=== PATIENT | male | born 1945 | race Caucasian/White ===

== ENCOUNTER 2019-04-23 06:11 | Inpatient (IN) ==
--- NOTE | 2019-04-22 13:12 | Anesthesiology Consultation ---
Date of Service April 22, 2019 Assessment & Plan (1) Encounter for pre-operative examination: Chart Review Chart Review: Acceptable Risk for Surgery and Patient NOT seen in Pre Admission Testing Consults Requested none History Surgery Operation Date: 04/23/19 08:00 Proposed Procedures p Pacemaker Insert HIS Bundle w/Graciela uGzman DO Height/Weight Height: 5 ft 9 in Weight: 108.862 kg Allergies Allergy/AdvReac Type Severity Reaction Status Date / Time meloxicam Allergy Intermediate FEVER, Verified 04/22/19 08:11 SWELLING IN HANDS Medications Home Medications Medication Instructions Recorded Confirmed Last Taken allopurinol 100 mg PO BID 04/22/19 04/22/19 Unknown amlodipine 5 mg PO QAM 04/22/19 04/22/19 Unknown aspirin 325 mg PO DAILY 04/22/19 04/22/19 Unknown cyanocobalamin (vitamin B-12) 1,000 mcg PO DAILY 04/22/19 04/22/19 Unknown insulin NPH isoph U-100 human 27 unit SUBCUT BID 04/22/19 04/22/19 Unknown [Novolin N NPH U-100 Insulin] insulin regular human [Novolin R 1 sliding scale dose SUBCUT 04/22/19 04/22/19 Unknown Regular U-100 Insuln] USEASDIRECTD losartan 50 mg PO QAM 04/22/19 04/22/19 Unknown magnesium oxide 400 mg PO BID 04/22/19 04/22/19 Unknown omega 6-hae-hiq-fish oil [Fish Oil] 1 cap PO DAILY 04/22/19 04/22/19 Unknown pravastatin 20 mg PO QPM 04/22/19 04/22/19 Unknown Past Medical History Medical History Bradycardia CAD (coronary artery disease) s/p CABG (20+ years ago) Chronic kidney disease Diabetes mellitus, type 2 GERD (gastroesophageal reflux disease) Gout Hyperlipidemia Hypertension Kidney cysts Peripheral neuropathy Temporomandibular joint disorder hx (no current issues) Past Family History Family History Father Family history of diabetes mellitus Aunt Family history of diabetes mellitus Family hx of colon cancer Past Surgical History Surgical History History of anesthesia reaction "Slow to wake" History of cardiac cath 20+ years ago History of cataract surgery RT/LEFT History of coronary artery bypass graft CABG x 3 (20+ years ago) History of foot surgery RT/LEFT TOE TENDON SURGERY History of tonsillectomy and adenoidectomy History of tooth extraction Social History Smoking Status: Never smoker Do You Dip or Chew Tobacco: No Hx Alcohol Use: Yes Alcohol type: wine Alcohol Intake Frequency Comment: [facility] Hx Substance Use: No Testing Laboratory Results 04/14/10 WBC 6.9 Hgb 15.8 Plt 234 BUN 13 Cr 1.3 NA 135 K 5 Cl 97 CO2 29 AG 9 Gluc 201 Ca 9.5 Electrocardiogram Date: 12/09/18 Findings: + SB @ (56) 1st degree AV block Stress Test Date: 09/12/17 Type: exercise Findings: + WNL, + did not achieved max HR (87%) and + pertinent finding (occasional PVC during stress, RBBB noted at rest) Other Testing 12/09/18 Carotid ultrasound less than 50% stenosis of R and L internal carotid arteries
[~2019-04-23 06:11] MED LIST: CEFAZOLIN 2000MG 2,000 MG/15 ML SYR IV SCH; LR 15ML/HR IV SCH; SODIUM CHLORIDE 0.9% 1000ML IV SCH
[2019-04-23] MEDS ORDERED: LIDOCAINE HCL 1% 20 ML VIAL ONE (07:20)
[2019-04-23] MEDS ORDERED: BUPIVACAINE 0.25% 30 ML VIAL ONE (07:20)
[2019-04-23] MEDS ORDERED: BACITRACIN INJ 50,000 UNIT VIAL ONE (07:20)
[2019-04-23] MEDS ORDERED: CEFAZOLIN 250 MG/ML 1 GM VIAL ONE (07:39)
[2019-04-23] MEDS ORDERED: KETAMINE HCL INJ 50 MG/ML 10 ML VIAL ONE (07:56)
[2019-04-23] MEDS ORDERED: fentaNYL citrate 100 MCG/2 ML VIAL ONE (07:56)
[2019-04-23] MEDS ORDERED: GLYCOPYRROLATE 0.2 MG/ML VIAL ONE (07:56)
[2019-04-23] MEDS ORDERED: LIDOCAINE HCL 2% 2 ML VIAL/AMP(20MG/ML) INFIL ONE (07:56)
[2019-04-23] MEDS ORDERED: PROPOFOL IV EMULSION 10 MG/ML 100 ML VIAL IV ONE (07:56)
--- NOTE | 2019-04-23 08:01 | History & Physical Bridge Note ---
Date of Service April 23, 2019 History & Physical Bridge Note I have examined the patient, reviewed the History & Physical and in the interval since the performance of the History & Physical I have noted the following changes of clinical significance: no changes noted
[2019-04-23] MEDS ORDERED: SODIUM CHLORIDE 0.9% INJ 10 ML VIAL ONE (08:23)
[2019-04-23] MEDS ORDERED: ONDANSETRON INJ 2 MG/ML 2 ML VIAL ONE (10:25)
[2019-04-23] MEDS ORDERED: ACETAMINOPHEN 325 MG TAB PO PRN (10:52)
[2019-04-23] MEDS ORDERED: OXYCODONE/ACETAMINOPHEN 5mg/325mg TAB PO PRN (10:52)
--- NOTE | 2019-04-23 10:52 | Operative Report ---
Post Operative Report Pre & Post Diagnosis Intermittent 2:1 AV block Operation Date: 04/23/19 08:00 <No data on this case meets the specified criteria> I identified the patient and participated in the time-out.: Yes Procedure Operation Date: 04/23/19 08:00 Actual Procedures p Pacer with A/V Leads (Dual) - Kacie Guzman DO s Venogram, Unilateral - Kacie Guzman DO Surgeon Kacie Guzman, Shop Girl none Estimated Blood Loss 25 Findings Consistent with Post-Op Diagnosis Specimens none Description of Procedure see official report I attest to the content of the Intraoperative Record and any orders documented therein. Any exceptions are noted below.
[2019-04-23] MEDS ORDERED: NovoLIN-R INSULIN PER UNIT CHARGE SQ SCH (11:00)
--- NOTE | 2019-04-23 11:18 | Anesthesiology Progress Note ---
Date of Service April 23, 2019 Anesthesia Post Procedure Vital Signs Vital Signs: Temp Pulse Resp BP Pulse Ox 04/23/19 11:12 62 20 133/82 99 04/23/19 11:00 67 20 133/72 100 04/23/19 07:12 36.8 C 71 20 150/102 H 98 Transfer of Care Handoff Completed per policy Notes Mental Status: alert / awake / arousable Patient Amnestic to Procedure: Yes Nausea / Vomiting: adequately controlled Pain: adequately controlled Airway Patency, RR, SpO2: stable & adequate BP & HR: stable & adequate Hydration State: stable & adequate Anesthetic Complications: no major complications apparent and Pt Satisfied with anesthetic care
[2019-04-23] MEDS ORDERED: PHARMACY GLYCEMIC MGMT CONSULT PRN (11:35)
[2019-04-23] MEDS: INSULIN ASPART 100 UNITS/ML 3 ML PEN SC SCH ×4 (12:37→20:38)
--- NOTE | 2019-04-23 13:28 | Pharmacy Report ---
Pharmacy Glycemic Short Note 2 - Date of Service April 23, 2019 - Glycemic Short BSG Results (Last 24 hours): 04/23/19 04/23/19 04/23/19 07:43 09:21 10:17 POC Glucose 184 H 200 H 181 H 04/23/19 11:34 POC Glucose 198 H OUTPATIENT ANTIDIABETIC REGIMEN (PER PATIENT REPORT 04/23): * NPH 26 units BID (upon awakening and at bedtime) * Regular BID with meals (lunch and dinner) per carb ratio 1 unit per 8 gm CHOs eaten, correction factor 30mg/dL/unit * A1c = ? (patient reports his last A1c = 7.1) ASSESSMENT: * Type 2 diabetic admitted for bradycardia, pacemaker insertion * Patient reports giving himself 13 units NPH this AM per pre-op instructions * BSGs in the 180's and 190's range since admission. * Patient refusing correctional and prandial insulin administration for BSG 200 * Will provide orders for NPH + Novolog for this admission based upon his reported out-pt doses, however pt appears to be resistant to allowing insulin administration because it will "bottom him out" PLAN FOR INPATIENT GLYCEMIC CONTROL: * Check A1c with tomorrow's labs * Basal insulin * NPH 20 units SQ BIDM (~80% of home dosage due to hospital dietary restrictions), will give next dose w/ evening meal due to current hyperglycemia and basal deficiency * Bolus insulin * NovoLog per scale ACHS or Q6hrs while NPO * Goal Range: Low 120 mg/dL - High 150 mg/dL * Correction Factor: 25 mg/dL/unit * Nutritional / Prandial insulin per carb ratio of 1 unit per 8 grams CHO consumed PLAN FOR DISCHARGE: * to be determined
[2019-04-23] MEDS: AMLODIPINE BESYLATE 5 MG TAB PO SCH (15:07)
[2019-04-23] MEDS: LOSARTAN POTASSIUM 50 MG TAB PO SCH (15:07)
[2019-04-23] MEDS ORDERED: COUGH DROP (SUGAR FREE) LOZ 24 LOZ/1 BOX BUCCAL PRN (16:55)
[2019-04-23] MEDS: INSULIN HUMAN NPH SC SCH (17:59)
[2019-04-23] MEDS: MAGNESIUM OXIDE 400 MG TAB PO SCH (20:37)
[2019-04-23] MEDS: allopurinoL 100 MG TAB PO SCH (20:38)
[2019-04-23] MEDS ORDERED: [UNRECOGNIZED DRUG - OTHER] SQ SCH (21:00)
[2019-04-23] MEDS ORDERED: PRAVASTATIN SOD 20 MG TAB PO SCH (21:00)
[2019-04-23] MEDS ORDERED: INSULIN ISOPHANE SQ SCH (21:00)
[2019-04-24 06:31] LABS: Estimated Average Glucose 194 mg/dl; Hemoglobin A1C 8.4 % (4.5-5.6)
--- NOTE | 2019-04-24 08:04 | Discharge Summary ---
Date of Service April 24, 2019 Admission HPI Per Admitting Provider Pt admitted for elective ppm due to symptomatic intermittent 2:1 AV block Admission Exam Per Admitting Provider aaox3, NAD NC/AT, EOMI Supple No JVD Nrl S1/S2, No murmur CTA b/l no w/r/r soft nt/nd no LE edema b/l skin intact no focal deficits Principal Diagnosis Intermittent 2:1 AV block s/p dual chamber ppm Discharge Exam aaox3, NAD NC/AT, EOMI Supple No JVD Nrl S1/S2, No murmur CTA b/l no w/r/r soft nt/nd no LE edema b/l skin intact no focal deficits left pectoral incision intact, no hematoma mild ecchymosis Discharge Data Allergies Allergy/AdvReac Type Severity Reaction Status Date / Time meloxicam Allergy Intermediate FEVER, Verified 04/22/19 08:11 SWELLING IN HANDS Procedures Performed Operation Date: 04/23/19 08:00 Actual Procedures p Pacer with A/V Leads (Dual) - Kacie Guzman DO s Venogram, Unilateral - Kacie Guzman DO Ordered Studies ECG: SR CXR: No PTX leads in position 04/23/19 07:30 EP Lab Images for PACS ONCE Total Time Total Time Spent Total Time Spent (In Minutes): 30 Total Time Includes: Examination of the Patient, Discharge Planning, Medication Reconciliation and Other Discharge Plan Discharge Items Patient Disposition: Home - Self-Care Reason For Visit: Bradycardia,DUAL PACER INSERTION Discharge Diagnosis: av block s/p ppm Condition on Discharge: Good Activity: As commented below Activity Comment: do not lift the left elbow over the left shoulder for 1 month Lifting: No more than 10 pounds Lifting Comment: do not lift more than 10 pounds with the left arm for 2 weeks Bathing: Keep incision dry Bathing Comment: can shower wednesday 04/25 let water run over the dressing do not scrub it Sexual Activity: After two weeks Driving/Machine Use: Resume 1 day after discharge Non-emergency contact: Food And Beverage Intern Call non-emergency contact if: you have any medication questions Follow-up/Referrals: Sylvain Kearns MD [Primary Care Provider] - Diet: Heart Healthy Add Attending Provider Instructions: device and wound check next week in [place] as scheduled if you notice any concerns at the incision area call my office immediately try to keep the white dressing on until your wound check Pending Studies at Discharge: No Stand-Alone Forms: My [facility], Smoking Cessation Medications and DC Order Prescriptions: Continued losartan 50 mg Tablet 50 mg PO QAM RF: 0 aspirin 325 mg Tablet 325 mg PO DAILY RF: 0 cyanocobalamin (vitamin B-12) 1,000 mcg Tablet 1,000 mcg PO DAILY RF: 0 amlodipine 5 mg Tablet 5 mg PO QAM RF: 0 allopurinol 100 mg Tablet 100 mg PO BID RF: 0 Novolin R Regular U-100 Insuln 100 unit/mL Solution 1 sliding scale dose SUBCUT USEASDIRECTD RF: 0 Novolin N NPH U-100 Insulin 100 unit/mL Suspension 27 unit SUBCUT BID RF: 0 pravastatin 20 mg Tablet 20 mg PO QPM RF: 0 omega 1-scr-jfj-fish oil [Fish Oil] 1,000 mg (120 mg-180 mg) Capsule 1 cap PO DAILY RF: 0 magnesium oxide 400 mg magnesium Capsule 400 mg PO BID RF: 0 Discharge Orders: Discharge Order (Routine); Ordered 04/24/19 Ordered By: Kacie Guzman Admission Data Admit Date/Time: 04/23/19 10:58 Attending Provider: Kacie Guzman Admit Provider: Kacie Guzman Primary Care Provider: Sylvain Kearns
[2019-04-24] MEDS: INSULIN HUMAN NPH SC SCH (08:13)
[2019-04-24] MEDS: MAGNESIUM OXIDE 400 MG TAB PO SCH (08:13)
[2019-04-24] MEDS: allopurinoL 100 MG TAB PO SCH (08:13)
[2019-04-24] MEDS: INSULIN ASPART 100 UNITS/ML 3 ML PEN SC SCH (08:14)
[2019-04-24] MEDS: AMLODIPINE BESYLATE 5 MG TAB PO SCH (08:49)
[2019-04-24] MEDS: LOSARTAN POTASSIUM 50 MG TAB PO SCH (08:49)
[2019-04-24] MEDS ORDERED: OMEGA-3 (PURIFIED FISH OIL) 1 GM CAP PO SCH (09:00)
[2019-04-24] MEDS ORDERED: CYANOCOBALAMIN 500 MCG TABLET (VITAMIN B-12) PO SCH (09:00)
[2019-04-24] MEDS ORDERED: ASPIRIN 325 MG ECTAB PO SCH (09:00)
--- NOTE | 2019-04-24 09:31 | XRay Report ---
XR chest 2V PA/lateral HISTORY: Status post pacemaker placement. COMPARISON: None. FINDINGS: The lungs are clear. The heart is normal in size. There are poststernotomy changes with mul tiple fractures sternal wires. Left-sided dual-chamber pacemaker. Leads appear intact. The left ventr icular lead is more superior than expected. No pneumothorax. No pleural effusions. IMPRESSION: 1. No pneumothorax. 2. The left ventricular lead is more superior than expected. Clinical correlation recommended. Electronically signed by: Jim Fountain M.D. 04/24/2019 9:29 AM
--- NOTE | 2019-04-24 10:48 | Anesthesiology Progress Note ---
Date of Service April 24, 2019 Anesthesia Post Procedure Vital Signs Vital Signs: Temp Pulse Pulse Pulse Resp BP Pulse Ox 04/24/19 08:43 36.4 C L 18 L 63 18 144/92 H 96 04/24/19 08:00 77 04/24/19 07:19 36.4 C L 63 18 144/92 H 96 04/24/19 03:12 36.9 C 81 18 139/55 L 94 04/23/19 23:27 36.8 C 69 18 145/75 H 95 04/23/19 19:20 36.8 C 76 19 146/74 H 94 04/23/19 13:37 36.9 C 74 20 160/59 H 97 04/23/19 13:07 72 20 145/89 H 04/23/19 12:37 72 18 149/80 H 96 04/23/19 12:07 36.6 C 58 L 20 145/85 H 96 04/23/19 12:00 18 L 59 L 20 145/85 H 96 04/23/19 11:43 36.4 C L 63 63 18 144/92 H 96 04/23/19 11:37 36.6 C 72 20 144/59 H 98 04/23/19 11:22 36.9 C 78 20 144/74 H 96 04/23/19 11:12 62 20 133/82 99 04/23/19 11:00 67 20 133/72 100 Notes Mental Status: alert / awake / arousable and participated in evaluation Nausea / Vomiting: adequately controlled Pain: adequately controlled Airway Patency, RR, SpO2: stable & adequate BP & HR: stable & adequate Hydration State: stable & adequate Anesthetic Complications: no major complications apparent
--- NOTE | 2019-04-28 09:57 | Operative Report ---
DATE OF OPERATION: 04/23/2019 PREOPERATIVE DIAGNOSES: Intermittent 2:1 atrioventricular block, right bundle branch block, first degree atrioventricular block, symptomatic. POSTOPERATIVE DIAGNOSES: Intermittent 2:1 atrioventricular block, right bundle branch block, first degree atrioventricular block, symptomatic. PROCEDURE: Dual chamber rate responsive permanent pacemaker under fluoroscopic guidance along with peripheral venogram. SURGEON: Kacie Guzman DO. ASSISTANTS: None. ANESTHESIA: Monitored anesthetic care administered via anesthesiology. Please defer to their notes for complete details, but a 2 mg of Versed, 100 mcg of fentanyl, 600 mg of propofol, 100 mg of ketamine. IV CONTRAST: 10 mL. IV FLUIDS: 94 mL. Start time was 8:05, end time was 10:44. BLOOD LOSS: 25 mL. URINE OUTPUT: Not applicable. DRAINS: None. FINDINGS: See below. DRAINS: None. COMPLICATIONS: None. CONDITION: Stable. 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 He was recommended a pacemaker due to the bradycardia. CONSENT: Consent was obtained prior to the patient going into electrophysiology lab. The patient was informed of the risks, benefits and alternatives of procedure. Risks include but not limited to sudden cardiac , cardiac arrhythmias, cerebrovascular accident, myocardial infarction, injury to the blood vessels, chamber of the heart, lung, bleeding, and infection. The patient understood these risks and agreed to the procedure as planned. Informed consent was obtained. DESCRIPTION OF THE PROCEDURE: The patient was brought into the electrophysiology lab in fasting state. He was connected to continuous shelter monitor. A timeout was performed to ensure patient's identity and procedure correctly. The patient received prophylactic antibiotics prior to incision. He was prepped and draped over the left infraclavicular space in normal surgical standard fashion. Monitored conscious sedation given throughout the procedure for patient's comfort level. [place] precautions maintained throughout the procedure. 10 mL 1% lidocaine, bupivacaine mixture were given in the left deltopectoral groove. Incision was made in left deltopectoral groove. Blunt dissection performed down to identify cephalic vein; however, none could be identified, so peripheral venogram was performed using 10 mL of IV contrast diluted in 10 mL of saline followed by 20 mL flush and venous axillary access was obtained through a needle stick through the axillary vein without any problems. Guidewire was inserted without any resistance. An 8-Slovenian sheath was inserted over the guidewire without any resistance. Dilator was removed and a second guidewire was inserted through the 8-Slovenian sheath to allow for retained venous access. Sheath was removed and an 8-Slovenian sheath was inserted over one of the retained guidewires without any restriction. The guidewire and dilator removed and initially we had set up to try to do a His bundle pacing lead, so the His bundle outer sheath was then advanced into the right atrium over a guidewire without any resistance. Guidewire and dilator were removed. Then we tried to do an electrocardiogram and intracardiac mapping of the His bundle; however, I could not find one, I switched out the preformed His sheath for a deflectable His sheath, but that did not help, either. I went back to the preformed and I still did not find any, so I opted to place the right ventricular pacing lead up onto the outflow tract area of the septum. There was adequate pacing and sensing thresholds and no diaphragmatic stimulation with high output pacing. The 8-Slovenian sheath was peeled away and lead was fixated to pectoralis muscle using 0 silk suture. A second 8-Slovenian sheath was inserted over the retained guidewire without any resistance. Guidewire and dilator removed, then the right atrial lead was advanced into right atrium and positioned interatrial appendage under fluoroscopic guidance. There was adequate pacing and sensing thresholds and no diaphragmatic stimulation with high output pacing. The 8-Slovenian sheath was peeled away and lead was fixated to pectoralis muscle using 0 silk suture. Pacemaker pocket was created using blunt dissection over the pectoralis muscle and removed the pectoral fascia. The pocket was flushed with copious amounts of bacitracin saline wash and inspected for hemostasis. The pulse generator was then attached to leads, making sure that the pins were in appropriate position, passed set screw and set screws were all tightened. Pulse generator was then placed in the pocket, making sure that the leads were lying flat beneath the device. A stay stitch using 0 silk suture was used to secure the rest of the pectoralis muscle. Bladimir stat was placed in the pocket and then the incision was closed in 3-layer fashion with 2-0 Vicryl interrupted suture followed by 3-0 Vicryl interrupted suture followed by 4-0 Monocryl running stitch and Dermabond was applied followed then by a Telfa and micropore dressing. EQUIPMENT: 1. Pulse generator is a Medtronic [place] XT DR LEDEZMA BalbinaViolet [id number], serial # [id number]. 2. Right atrial lead Medtronic 5076-52 cm, serial# [id number]. 3. Right ventricular lead, Medtronic 5076-58 cm, serial# [id number]. INTRAOPERATIVE TESTIN. Right atrial lead: P waves 1.2 millivolts, impedance 669 ohms, threshold 0.9 volts at 0.5 milliseconds. 2. Right ventricular lead: R-wave 5.1 millivolts, impedance 1210 ohms, threshold 0.4 volts at 0.5 milliseconds. FINAL MEASUREMENTS THROUGH THE DEVICE: 1. Right atrial lead: P waves 1.4 millivolts, impedance 494 ohms, threshold 0.5 volts at 0.4 milliseconds. 2. Right ventricular lead: R-wave 6.1 millivolts, impedance 1159 ohms, threshold 0.5 volts at 0.4 milliseconds. FINAL PARAMETERS: MVP 60/130, right atrial amplitude 3.5 volts, pulse width 0.4 milliseconds, sensitivity 0.3 millivolts. Right ventricular amplitude 3.5 volts, pulse width 0.4 milliseconds, sensitivity 0.9 millivolts. IMPRESSION: Successful dual chamber rate responsive permanent pacemaker under fluoroscopic guidance along with peripheral venogram secondary to intermittent 2:1 AV block. PLAN: Monitor patient overnight, 12-lead ECG, chest x-ray. He is not allowed to lift left elbow or left shoulder for 1 month. He cannot lift more than 10 pounds with the left arm for 2 weeks. He should follow up in our [place] office for device and wound check in 1 week's time and continue to follow with his general assembler utility buildings. I attest to the content of the Intraoperative Record and any orders documented therein. Any exception s are noted below.
== END 2019-04-24 10:54 | disposition home or self-care (01) | DRG 244 ==
LOC: EP 06:11 → 2S 10:58